=== PATIENT | male | born 1950 | race African-American/Black ===

== ENCOUNTER 2016-08-03 10:49 | Inpatient (IN) | payer MEDICARE, BC ==
[~2016-08-03] VITALS: Ht 188 cm; Wt 125.2 kg
[2016-08-03] MEDS ORDERED: DILAUDID 1 MG/ML AMP ONE ×2 (11:08→12:23)
[2016-08-03] MEDS ORDERED: MIDAZOLAM HCL 5 MG/5 ML VIAL ONE (11:12)
[2016-08-03] MEDS ORDERED: BACITRACIN 50,000 UNITS INJ IRRIG ONE (11:20)
[2016-08-03] MEDS ORDERED: PROPOFOL 50 ML IV ONE (11:22)
[2016-08-03] MEDS ORDERED: ONDANSETRON 4 MG VIAL IV PUSH ONE (11:24)
[2016-08-03] MEDS ORDERED: ROCURONIUM 50 MG VIAL IV ONE (11:24)
[2016-08-03] MEDS ORDERED: FENTANYL 100 MCG/2 ML AMP IV ONE (11:24)
[2016-08-03] MEDS ORDERED: NEOSTIGMINE 10 MG/10 ML VIAL IV ONE (11:24)
[2016-08-03] MEDS ORDERED: PROPOFOL 20 ML PER ML IV ONE (11:24)
[2016-08-03] MEDS ORDERED: LIDOCAINE 2% SYR 5 ML IV ONE (11:24)
[2016-08-03] MEDS ORDERED: SUGAMMADEX 200 MG/2 ML VIAL IV ONE (11:24)
[2016-08-03] MEDS ORDERED: GLYCOPYRROLATE 0.2 MG/ML VIAL IV ONE (11:24)
[2016-08-03] MEDS ORDERED: SODIUM CHLORIDE 0.9% 1,000 ML IV SCH (14:05)
[2016-08-03] MEDS ORDERED: SALINE FLUSH 10 ML FLUSH PRN (14:05)
[2016-08-03] MEDS: ALLOPURINOL 300 MG TAB PO SCH (15:24)
[2016-08-03 15:27] VITALS: BP_SYST 121; RESP 16; TEMP 97.4; BMI 35.5
[2016-08-03] MEDS: TAMSULOSIN 0.4 MG CAP PO SCH (15:27)
[2016-08-03] MEDS: LEVOTHYROXINE 0.05 MG TAB PO SCH (15:28)
[2016-08-03] MEDS: ISOSORBIDE MONO 30 MG TAB PO SCH (15:28)
[2016-08-03] MEDS ORDERED: BUMETANIDE 1 MG TAB PO SCH (17:00)
[2016-08-03 17:04] VITALS: BP_SYST 118; RESP 16; TEMP 97.2
[2016-08-03] MEDS: DILAUDID 1 MG/ML AMP IV PRN ×2 (17:07→20:26)
[2016-08-03] MEDS ORDERED: CEFAZOLIN 2,000 MG in SODIUM CHLORIDE 0.9% 100 ML IV ONE (17:25)
[2016-08-03 18:43] VITALS: BP_SYST 124; RESP 16; TEMP 97.3
[2016-08-03] MEDS ORDERED: LIDOCAINE 1% BUFFERED 1 ML SYR INTRADERM PRN (19:05)
[2016-08-03] MEDS ORDERED: MIDAZOLAM 2 MG/2 ML INJ IV ONE (19:05)
[2016-08-03] MEDS ORDERED: LACT RINGERS 1,000 ML IV SCH (19:05)
[2016-08-03 19:43] VITALS: BP_SYST 124; RESP 20; TEMP 98.1
[2016-08-03] MEDS: SALINE FLUSH 10 ML FLUSH SCH (20:00)
[2016-08-03] MEDS: CARVEDILOL 25 MG TAB PO SCH (20:25)
[2016-08-03] MEDS ORDERED: POLYETHYLENE GLYCOL 17 GM PACKET PO SCH (21:00)
[2016-08-03 23:32] VITALS: BP_SYST 127; RESP 20; TEMP 97.7
[2016-08-04] VITALS (37 sets, daily range): BP systolic 97–132; RESP 17–29; TEMP 97.3–99.2
[2016-08-04] MEDS: SODIUM CHLORIDE 0.9% FLUSH BAG 500 ML IV SCH (01:18)
[2016-08-04] MEDS: DILAUDID 1 MG/ML AMP IV PRN ×2 (02:25→05:58)
[2016-08-04] MEDS: LEVOTHYROXINE 0.05 MG TAB PO SCH (04:35)
[2016-08-04] MEDS ORDERED: MIDAZOLAM 2 MG/2 ML INJ ONE (06:47)
[2016-08-04] MEDS ORDERED: MORPHINE 4 MG/ML SYR IV PRN ×2 (07:20→07:50)
[2016-08-04] MEDS ORDERED: MORPHINE 2 MG/ML SYR IV PRN ×2 (07:20→07:50)
[2016-08-04] MEDS ORDERED: MEPERIDINE 25 MG/ML IV PRN (07:50)
[2016-08-04] MEDS ORDERED: DILAUDID 1 MG/ML AMP IV PRN (07:50)
[2016-08-04] MEDS ORDERED: OXYCODONE 5 MG TAB PO PRN (07:50)
[2016-08-04] MEDS ORDERED: ONDANSETRON 4 MG VIAL IV PRN (07:50)
[2016-08-04] MEDS ORDERED: SUGAMMADEX 200 MG/2 ML VIAL IV ONE (08:47)
[2016-08-04] MEDS: CARVEDILOL 25 MG TAB PO SCH (09:00)
[2016-08-04] MEDS ORDERED: BUMETANIDE 1 MG TAB PO SCH (09:00)
[2016-08-04] MEDS: TAMSULOSIN 0.4 MG CAP PO SCH (09:00)
[2016-08-04] MEDS ORDERED: EPINEPHrine 1:1,000 4 MG in SODIUM CHLORIDE 0.9% 250 ML IV SCH (09:00)
[2016-08-04] MEDS: ISOSORBIDE MONO 30 MG TAB PO SCH (09:00)
[2016-08-04] MEDS: ALLOPURINOL 300 MG TAB PO SCH (09:00)
[2016-08-04] MEDS ORDERED: SODIUM CHLORIDE 0.9% 1,000 ML IV SCH (10:05)
[2016-08-04] MEDS ORDERED: PHARMACY TO DOSE ZOSYN IV SCH (10:10)
[2016-08-04] MEDS: FENTANYL DRIP 50 ML IV PRN ×3 (10:39→21:10)
[2016-08-04] MEDS ORDERED: [UNRECOGNIZED DRUG - OTHER] XX ONE (10:40)
[2016-08-04] MEDS: PIPERACIL/TAZO 3.375GM/50ML 50 ML IV SCH ×2 (10:58→17:04)
[2016-08-04] MEDS: SALINE FLUSH 10 ML FLUSH SCH ×2 (10:58→20:11)
[2016-08-04] MEDS ORDERED: *PATIENT RECEIVING TUBE FEEDS, ASSESS/ADJUST MEDICATIONS NG SCH (12:00)
[2016-08-04] MEDS ORDERED: MISSING DOSE XX ONE (12:00)
[2016-08-04] MEDS ORDERED: CEFAZOLIN 2,000 MG in SODIUM CHLORIDE 0.9% 100 ML IV SCH (13:00)
[2016-08-04] MEDS ORDERED: OXYCODONE 5 MG TAB NG PRN (14:15)
[2016-08-04] MEDS ORDERED: Furosemide 40 MG/4 ML VIAL IV SCH (17:00)
[2016-08-04] MEDS: ISOSORBIDE DN PO SCH ×2 (17:01→20:12)
[2016-08-04] MEDS: CARVEDILOL 25 MG TAB NG SCH (20:11)
[2016-08-04] MEDS: POLYETHYLENE GLYCOL 17 GM PACKET NG SCH (20:12)
[2016-08-05] VITALS (41 sets, daily range): BP systolic 67–126; RESP 18–35; TEMP 99.6–102.3
[2016-08-05] MEDS: PIPERACIL/TAZO 3.375GM/50ML 50 ML IV SCH ×4 (00:19→17:19)
[2016-08-05] MEDS: FENTANYL DRIP 50 ML IV PRN ×3 (01:51→18:35)
[2016-08-05] MEDS: SODIUM CHLORIDE 0.9% FLUSH BAG 500 ML IV SCH (05:32)
[2016-08-05] MEDS: LEVOTHYROXINE 0.05 MG TAB NG SCH (06:16)
[2016-08-05] MEDS: CARVEDILOL 25 MG TAB NG SCH ×2 (07:53→21:14)
[2016-08-05] MEDS: ALLOPURINOL 300 MG TAB NG SCH (07:53)
[2016-08-05] MEDS: SALINE FLUSH 10 ML FLUSH SCH ×2 (07:53→21:15)
[2016-08-05] MEDS: ISOSORBIDE DN PO SCH ×3 (07:55→21:14)
[2016-08-05] MEDS: ACETAMINOPHEN 650 MG/20.3 ML UDC NG PRN ×2 (12:11→21:14)
[2016-08-05] MEDS ORDERED: SODIUM CHLORIDE 0.45% 1,000 ML IV SCH (13:05)
[2016-08-05] MEDS: POLYETHYLENE GLYCOL 17 GM PACKET NG SCH (21:14)
[2016-08-06] VITALS (41 sets, daily range): BP systolic 86–129; RESP 24–41; TEMP 99.4–102.7
[2016-08-06] MEDS ORDERED: SODIUM BICARB 8.4% 150 ML in DEXTROSE 5% 1,000 ML IV SCH (00:50)
[2016-08-06] MEDS ORDERED: SOD BICARB 8.4% SYR 50 ML IV ONE (00:50)
[2016-08-06] MEDS ORDERED: CALCIUM CHLORIDE 2,000 MG in SODIUM CHLORIDE 0.9% 100 ML IV ONE (00:50)
[2016-08-06] MEDS ORDERED: SOD BICARB 8.4% SYR 50 ML ONE (00:53)
[2016-08-06] MEDS: FENTANYL DRIP 50 ML IV PRN (01:10)
[2016-08-06] MEDS: PIPERACIL/TAZO 3.375GM/50ML 50 ML IV SCH ×4 (01:10→17:14)
[2016-08-06] MEDS: SODIUM CHLORIDE 0.9% FLUSH BAG 500 ML IV SCH (04:51)
[2016-08-06] MEDS: ACETAMINOPHEN 650 MG/20.3 ML UDC NG PRN ×2 (04:59→20:34)
[2016-08-06] MEDS: LEVOTHYROXINE 0.05 MG TAB NG SCH (05:52)
[2016-08-06] MEDS ORDERED: MISSING DOSE XX ONE ×4 (07:10→20:05)
[2016-08-06] MEDS: ALLOPURINOL 300 MG TAB NG SCH (07:34)
[2016-08-06] MEDS: ISOSORBIDE DN PO SCH ×3 (07:34→20:07)
[2016-08-06] MEDS: CARVEDILOL 25 MG TAB NG SCH ×2 (07:34→20:07)
[2016-08-06] MEDS: SALINE FLUSH 10 ML FLUSH SCH ×2 (07:40→20:34)
[2016-08-06] MEDS: MAGNESIUM SULF 1 GM/100 ML 100 ML IV SCH ×2 (08:57→10:36)
[2016-08-06] MEDS ORDERED: PHARMACY TO DOSE VANCOMYCIN IV SCH (10:00)
[2016-08-06] MEDS ORDERED: VANCOMYCIN 2,500 MG in SODIUM CHLORIDE 0.9% 500 ML IV ONE (10:10)
[2016-08-06] MEDS: NOREPINEPHRINE 16 MG in DEXTROSE 5% 234 ML IV SCH ×2 (10:47→20:24)
[2016-08-06] MEDS: VASOPRESSIN 40 UNITS in SODIUM CHLORIDE 0.9% 38 ML IV SCH ×2 (11:41→20:20)
[2016-08-06] MEDS: POLYETHYLENE GLYCOL 17 GM PACKET NG SCH (20:07)
[2016-08-07] VITALS (47 sets, daily range): BP systolic 55–124; RESP 16–60; TEMP 101.8–105.6
[2016-08-07] MEDS ORDERED: ACETAMINOPHEN 650 MG/20.3 ML UDC PO PRN (00:20)
[2016-08-07] MEDS: PIPERACIL/TAZO 3.375GM/50ML 50 ML IV SCH ×3 (00:24→14:36)
[2016-08-07] MEDS: ACETAMINOPHEN 650 MG/20.3 ML UDC NG PRN (00:39)
[2016-08-07] MEDS ORDERED: ACETAMINOPHEN 650 MG/20.3 ML UDC NG PRN (01:15)
[2016-08-07] MEDS ORDERED: MISSING DOSE XX ONE ×3 (03:05→07:45)
[2016-08-07] MEDS: NOREPINEPHRINE 16 MG in DEXTROSE 5% 234 ML IV SCH (05:23)
[2016-08-07] MEDS: SODIUM CHLORIDE 0.9% FLUSH BAG 500 ML IV SCH (05:24)
[2016-08-07] MEDS: LEVOTHYROXINE 0.05 MG TAB NG SCH (05:34)
[2016-08-07] MEDS: ISOSORBIDE DN PO SCH ×3 (09:00→20:14)
[2016-08-07] MEDS: ALLOPURINOL 300 MG TAB NG SCH (09:00)
[2016-08-07] MEDS: SALINE FLUSH 10 ML FLUSH SCH ×2 (09:55→20:12)
[2016-08-07] MEDS: CARVEDILOL 25 MG TAB NG SCH ×2 (10:06→20:13)
[2016-08-07] MEDS: ACETAMINOPHEN 1,000 MG/100 ML IV PRN ×2 (10:39→21:41)
[2016-08-07] MEDS ORDERED: PHARMACY TO DOSE VANCOMYCIN IV SCH (11:10)
[2016-08-07] MEDS ORDERED: VANCOMYCIN 1,250 MG in SODIUM CHLORIDE 0.9% 250 ML IV ONE (11:15)
[2016-08-07] MEDS: PIPERACIL/TAZO 2.25GM/50ML 50 ML IV SCH (18:32)
[2016-08-07] MEDS: POLYETHYLENE GLYCOL 17 GM PACKET NG SCH (20:13)
[2016-08-08] VITALS: BP_SYST 75; RESP 30; TEMP 103.5
[2016-08-08 00:08] VITALS: RESP 27
[2016-08-08 00:22] VITALS: BP_SYST 49; BP_SYST 59; RESP 26
[2016-08-08 00:30] VITALS: BP_SYST 79; RESP 25
[2016-08-08] MEDS: PIPERACIL/TAZO 2.25GM/50ML 50 ML IV SCH (00:39)
[2016-08-08] MEDS ORDERED: MISSING DOSE XX ONE (00:40)
[2016-08-08 00:53] VITALS: BP_SYST 69; RESP 14
== END 2016-08-08 00:58 | disposition expired | DRG 492 ==
LOC: ENRESERVDT → ENRESERVTM → ER 10:49 → EMR 14:19 → 5THE 15:15 → ICU 08-04 09:31
PROVIDERS: ADMIT Hospitalist; ATTEND Hospitalist
PROC: 5A1945Z Respiratory Ventilation, 24-96 Consecutive Hours (ICD-10-PCS; 2016-08-04)
PROC: 02HV33Z Insertion of Infusion Device into Superior Vena Cava, Percutaneous Approach (ICD-10-PCS; 2016-08-04)
PROC: 0PSF34Z Reposition Right Humeral Shaft with Internal Fixation Device, Percutaneous Approach (ICD-10-PCS; principal; 2016-08-04 07:20)
CPT/HCPCS: 71010; 76001; 80048; 80051; 80053; 80069; 80202; 82330; 82803; 83605; 83735; 84484; 85025; 85610; 85730; 86850; 86900; 86901; 87040; 87071; 87088; 92950; 93005; 93306; 94002; 94003; 94799; 96374; 96376; 99223; 99233; 99291; 99292